=== PATIENT | female | born 1990 | race Caucasian/White ===

== ENCOUNTER 2018-04-02 20:47 | Emergency (ER) | payer SELFPAY ==
[~2018-04-02] VITALS: Ht 154.9 cm; Wt 73.5 kg
[~2018-04-02 20:47] MED LIST: ASCO-90 PO; IBUP-1222 PO; IRON1TAB60 PO; OMEG1CAP23 PO; OXYC-302 PO; PREN1TAB52 PO; SERT50TA PO
[2018-04-02] MEDS ORDERED: METOCLOPRAMIDE 5 MG/ML, 2ML ONE (22:58)
[2018-04-02] MEDS ORDERED: DIPHENHYDRAMINE 50 MG/ML, 1ML IVPush ONE (23:00)
[2018-04-02] MEDS ORDERED: METOCLOPRAMIDE 5 MG/ML, 2ML IVPush ONE (23:00)
[2018-04-02] MEDS ORDERED: SODIUM CHLORIDE 0.9% 1,000ML IVBOLUS ONE (23:00)
[2018-04-02 23:09] LABS: BASOPHILS # (AUTO) 0.03 x10^3/uL (0-0.1); BASOPHILS % (AUTO) 0 % (0-1); EOSINOPHILS # (AUTO) 0.02 x10^3/uL (0-0.4); EOSINOPHILS % (AUTO) 0 % (1-7); LYMPHOCYTES # (AUTO) 1.32 x10^3/uL (1-3.4); LYMPHOCYTES % (AUTO) 11 % (22-44); MD NO; MEAN CORPUSCULAR HEMOGLOBIN 30.4 pg (27.0-34.8); MEAN CORPUSCULAR HGB CONC 33.2 g/dL (32.4-35.8); MEAN CORPUSCULAR VOLUME 91.8 fL (80-100); MEAN PLATELET VOLUME 9.5 fL (7.4-10.4); MONOCYTES # (AUTO) 0.51 x10^3/uL (0.2-0.8); MONOCYTES % (AUTO) 4 % (2-9); NEUTROPHILS # (AUTO) 9.93 x10^3/uL (1.8-6.8); NEUTROPHILS % (AUTO) 84 % (42-75); PLATELET COUNT 239 x10^3/uL (130-400); RED BLOOD COUNT 4.73 x10^6/uL (3.82-5.3); RED CELL DISTRIBUTION WIDTH 13.3 % (9.6-15.2)
[2018-04-02] MEDS ORDERED: DIPHENHYDRAMINE 50 MG/ML, 1ML ONE (23:15)
[2018-04-02 23:19] LABS: ALBUMIN 3.3 g/dL (3.4-5.0); ANION GAP 12 mmol/L (5-15); CALCIUM 8.9 mg/dL (8.5-10.1); CHLORIDE 105 mmol/L (98-107)
[2018-04-02 23:24] LABS: ALANINE AMINOTRANSFERASE 33 U/L (12-78); ALKALINE PHOSPHATASE 50 U/L (45-117); BILIRUBIN,TOTAL 0.3 mg/dL (0.2-1.0); CREATININE 0.57 mg/dL (0.55-1.02); TOTAL PROTEIN 7.5 g/dL (6.4-8.2)
[2018-04-03 00:10] LABS: MICROSCOPIC AUTO
[2018-04-03 00:14] LABS: CULTURE INDICATED? YES
[2018-04-03 00:48] VITALS: BP 108/64
== END 2018-04-03 00:50 | disposition home or self-care (01) ==
LOC: ED 23:55
DX: O23.11 Infections of bladder in pregnancy, first trimester (principal); O21.9 Vomiting of pregnancy, unspecified; E86.9 Volume depletion, unspecified; Z3A.11 11 weeks gestation of pregnancy
CPT/HCPCS: 36415; 76801; 80053; 81001; 83690; 85025; 87086; 96361; 96374; 96375; 99284; J1200; J2765; J7030

== ENCOUNTER 2018-09-14 04:33 | Observation (INO) | payer SELFPAY ==
[~2018-09-14] VITALS: Ht 154.9 cm; Wt 84.1 kg
[2018-09-14 05:05] VITALS: BP 120/71
[2018-09-14 05:20] LABS: MICROSCOPIC INDICATED
[2018-09-14] MEDS ORDERED: PROMETHAZINE 25 MG/ML, 1ML IM PRN (05:30)
[2018-09-14] MEDS ORDERED: METOCLOPRAMIDE 5 MG/ML, 2ML IVPush PRN (05:30)
[2018-09-14] MEDS: D5%-LACTATED RINGERS 1,000 ML IV SCH ×2 (05:49→06:43)
[2018-09-14 06:11] LABS: BASOPHILS # (AUTO) 0.01 x10^3/uL (0-0.1); BASOPHILS % (AUTO) 0 % (0-1); EOSINOPHILS # (AUTO) 0.01 x10^3/uL (0-0.4); EOSINOPHILS % (AUTO) 0 % (1-7); LYMPHOCYTES % (AUTO) 14 % (22-44); MD NO; MEAN CORPUSCULAR HEMOGLOBIN 32.4 pg (27.0-34.8); MEAN CORPUSCULAR HGB CONC 33.6 g/dL (32.4-35.8); MEAN CORPUSCULAR VOLUME 96.2 fL (80-100); MEAN PLATELET VOLUME 10.6 fL (7.4-10.4); MONOCYTES # (AUTO) 0.47 x10^3/uL (0.2-0.8); MONOCYTES % (AUTO) 6 % (2-9); NEUTROPHILS # (AUTO) 6.41 x10^3/uL (1.8-6.8); NEUTROPHILS % (AUTO) 80 % (42-75); PLATELET COUNT 154 x10^3/uL (130-400); RED CELL DISTRIBUTION WIDTH 14.8 % (9.6-15.2)
[2018-09-14] MEDS ORDERED: PROGESTERONE VG (06:12)
[2018-09-14] MEDS ORDERED: OMEG1CAP23 PO (06:12)
[2018-09-14] MEDS ORDERED: ASPI-515 PO (06:12)
[2018-09-14] MEDS ORDERED: FERR324T5 PO (06:12)
[2018-09-14] MEDS ORDERED: ONDA4TAB7 PO (06:12)
[2018-09-14 06:15] LABS: ALANINE AMINOTRANSFERASE 17 U/L (12-78); ALBUMIN 2.3 g/dL (3.4-5.0); ANION GAP 9 mmol/L (5-15); CALCIUM 9.5 mg/dL (8.5-10.1); CHLORIDE 107 mmol/L (98-107); CREATININE 0.72 mg/dL (0.55-1.02)
[2018-09-14 06:17] LABS: ALKALINE PHOSPHATASE 186 U/L (45-117); BILIRUBIN,TOTAL 0.3 mg/dL (0.2-1.0); TOTAL PROTEIN 5.9 g/dL (6.4-8.2)
== END 2018-09-14 08:45 | disposition home or self-care (01) ==
LOC: LDOP 04:33 → INTOOBSV 05:45 → LDIP 05:45
PROVIDERS: ADMIT Obstetrics & Gynecology; ATTEND Obstetrics & Gynecology
DX: O21.2 Late vomiting of pregnancy (principal); O30.003 Twin pregnancy, unspecified number of placenta and unspecified number of amniotic sacs, third trimester; Z3A.34 34 weeks gestation of pregnancy
CPT/HCPCS: 36415; 80053; 81001; 82962; 85025; 87081; 87086; 96360; 96361; G0378; J7121; 59025

== ENCOUNTER 2018-09-23 05:07 | Inpatient (IN) | payer OTHER ==
[~2018-09-23] VITALS: Ht 154.9 cm; Wt 85.0 kg
[~2018-09-23 05:07] MED LIST changes: +ASPI-515 PO; +FERR324T5 PO; +ONDA4TAB7 PO; +PROGESTERONE VG
[2018-09-23 05:20] VITALS: BP 120/76
[2018-09-23] MEDS ORDERED: LACTATED RINGERS 1,000 ML IV SCH (05:52)
[2018-09-23] MEDS ORDERED: METOCLOPRAMIDE 5 MG/ML, 2ML IV ONE (06:00)
[2018-09-23] MEDS ORDERED: LACTATED RINGERS 1,000 ML IVBOLUS ONE (06:00)
[2018-09-23] MEDS ORDERED: SODIUM CITRATE/CITRIC ACID 15 ML UDC PO ONE (06:00)
[2018-09-23] MEDS ORDERED: OXYTOCIN 30U/ 0.9% NaCL 500ML 500 ML IV ONE (06:18)
[2018-09-23] MEDS ORDERED: FENTANYL/BUPIV./NS/PF 250 ML EPIDCONT SCH ×2 (06:23→08:22)
[2018-09-23] MEDS ORDERED: ONDANSETRON 2MG/ML, 2ML IVPush PRN ×2 (06:30→08:30)
[2018-09-23] MEDS ORDERED: FENTANYL PF 500 MCG, BUPIVACAINE/PF 0.5%, 30ML 62.5 ML in SODIUM CHLORIDE 0.9% 177.5 ML EPIDCONT SCH (06:30)
[2018-09-23] MEDS ORDERED: TERBUTALINE 1 MG/ML, 1ML IVPush PRN ×2 (06:30)
[2018-09-23] MEDS ORDERED: FENTANYL PF 100 MCG/2ML IV PRN (06:30)
[2018-09-23] MEDS ORDERED: FENTANYL PF 100 MCG/2ML IVPush PRN (06:30)
[2018-09-23 06:56] LABS: BASOPHILS # (AUTO) 0.03 x10^3/uL (0-0.1); BASOPHILS % (AUTO) 0 % (0-1); EOSINOPHILS % (AUTO) 0 % (1-7); LYMPHOCYTES % (AUTO) 16 % (22-44); MD NO; MEAN CORPUSCULAR HEMOGLOBIN 31.7 pg (27.0-34.8); MEAN CORPUSCULAR HGB CONC 31.8 g/dL (32.4-35.8); MEAN CORPUSCULAR VOLUME 99.8 fL (80-100); MEAN PLATELET VOLUME 10.4 fL (7.4-10.4); MONOCYTES % (AUTO) 7 % (2-9); NEUTROPHILS # (AUTO) 4.79 x10^3/uL (1.8-6.8); NEUTROPHILS % (AUTO) 77 % (42-75); PLATELET COUNT 161 x10^3/uL (130-400); RED BLOOD COUNT 4.27 x10^6/uL (3.82-5.3); RED CELL DISTRIBUTION WIDTH 14.5 % (9.6-15.2)
[2018-09-23] MEDS ORDERED: ONDANSETRON 2MG/ML, 2ML ONE ×2 (07:09→18:25)
[2018-09-23] MEDS ORDERED: FENTANYL PF 100 MCG/2ML ONE (07:29)
[2018-09-23] MEDS ORDERED: BUPIVACAINE 0.25% ONE ×2 (07:30→17:46)
[2018-09-23] MEDS ORDERED: METHYLERGONOVINE 0.2 MG/ML IM ONE (08:00)
[2018-09-23] MEDS ORDERED: EPHEDRINE 50 MG/ML, 1ML IVPush PRN (08:30)
[2018-09-23] MEDS ORDERED: LACTATED RINGERS 1,000 ML IVBOLUS PRN (08:30)
[2018-09-23] MEDS ORDERED: OXYTOCIN 30U/ 0.9% NaCL 500ML 500 ML IV PRN (08:35)
[2018-09-23] MEDS ORDERED: OXYTOCIN 30U/ 0.9% NaCL 500ML 500 ML ONE ×2 (08:36→15:17)
[2018-09-23] MEDS ORDERED: PROPOFOL 10 MG/ML, 20ML ONE (15:25)
[2018-09-23] MEDS ORDERED: MISOPROSTOL 200 MCG TABLET ONE (16:46)
[2018-09-23 17:40] LABS: MEAN CORPUSCULAR HEMOGLOBIN 31.9 pg (27.0-34.8); MEAN CORPUSCULAR HGB CONC 32.1 g/dL (32.4-35.8); MEAN CORPUSCULAR VOLUME 99.4 fL (80-100); PLATELET (DIC) 176 x10^3/uL (130-400); PLATELET COUNT 181 x10^3/uL (130-400); RED BLOOD COUNT 3.23 x10^6/uL (3.82-5.3); RED CELL DISTRIBUTION WIDTH 14.5 % (9.6-15.2)
[2018-09-23] MEDS ORDERED: MEPERIDINE/PF 50 MG/ML ONE (17:44)
[2018-09-23] MEDS ORDERED: PHENYLEPHRINE 10 MG/ML ONE (17:46)
[2018-09-23] MEDS ORDERED: CEFAZOLIN 1,000 MG ONE ×2 (17:46)
[2018-09-23] MEDS ORDERED: OXYTOCIN 30U/ 0.9% NaCL 500ML 500 ML IV SCH (17:54)
[2018-09-23] MEDS ORDERED: MEASLES,MUMPS&RUBELLA VACC/PF 0.5 ML SQ-VACC PRN (18:00)
[2018-09-23] MEDS ORDERED: OXYcodone/APAP 5/325MG TABLET PO PRN (18:00)
[2018-09-23] MEDS ORDERED: ACETAMINOPHEN 325 MG TABLET PO PRN ×2 (18:00)
[2018-09-23] MEDS ORDERED: MISOPROSTOL 200 MCG TABLET PR PRN (18:00)
[2018-09-23] MEDS ORDERED: MAGNESIUM HYDROXIDE 8%, 30ML UDC PO PRN (18:00)
[2018-09-23] MEDS ORDERED: RHOGAM FROM BLOOD BANK 1 NOTE EA IM/IV ONE (18:00)
[2018-09-23] MEDS ORDERED: CALCIUM CARBONATE 500 MG TAB.CHEW PO PRN (18:00)
[2018-09-23] MEDS ORDERED: DIPH,PERTUSS(ACELL),TET VAC/PF NC IM-VACC PRN (18:00)
[2018-09-23] MEDS ORDERED: ONDANSETRON 2MG/ML, 2ML IV PRN (18:00)
[2018-09-23 18:05] LABS: FIBRINOGEN 259 mg/dL (200-340); PROTIME 10.3 Seconds (9.6-11.5); PTT 28 Seconds (25-31)
[2018-09-23 18:10] LABS: MD YES
[2018-09-23 18:14] LABS: ANISOCYTOSIS 1+; BAND#(MANUAL) 2.14 x10^3/uL; BANDS%(MANUAL) 20 % (0-7); EOS#(MANUAL) 0.11 x10^3/uL (0.0-0.4); EOS% (MANUAL) 1 % (1-7); LYMPH#(MANUAL) 1.28 x10^3/uL (1-3.4); LYMPHS% (MANUAL) 12 % (22-44); METAMYELOCYTES# (MANUAL) 0.11 x10^3/uL (0-0); METAMYELOCYTES% (MANUAL) 1 % (0-1); MONOS#(MANUAL) 0.11 x10^3/uL (0.3-2.7); MONOS% (MANUAL) 1 % (2-9); POLYCHROMASIA 1+; SEG#(MANUAL) 6.96 x10^3/uL (1.8-6.8); SEGS% (MANUAL) 65 % (42-75)
[2018-09-23 18:16] LABS: <PLATELET ESTIMATE> ADEQUATE; <PLT MORPHOLOGY> NORMAL PLT MORPH
[2018-09-23 18:18] LABS: D-DIMER (DIC) > 35.20 ug/mlFEU (0.00-0.52)
[2018-09-23] MEDS: LACTATED RINGERS 1,000 ML IV SCH (18:37)
[2018-09-23] MEDS ORDERED: ACETAMINOPHEN 1,000 MG/100 ML IV IVPB STA (18:45)
[2018-09-23 23:45] LABS: BASOPHILS % (AUTO) 0 % (0-1); EOSINOPHILS % (AUTO) 0 % (1-7); LYMPHOCYTES # (AUTO) 0.92 x10^3/uL (1-3.4); LYMPHOCYTES % (AUTO) 6 % (22-44); MD NO; MEAN CORPUSCULAR HEMOGLOBIN 30.8 pg (27.0-34.8); MEAN CORPUSCULAR HGB CONC 31.7 g/dL (32.4-35.8); MEAN CORPUSCULAR VOLUME 97.1 fL (80-100); MEAN PLATELET VOLUME 9.7 fL (7.4-10.4); MONOCYTES # (AUTO) 0.64 x10^3/uL (0.2-0.8); MONOCYTES % (AUTO) 4 % (2-9); NEUTROPHILS # (AUTO) 15.03 x10^3/uL (1.8-6.8); NEUTROPHILS % (AUTO) 91 % (42-75); PLATELET COUNT 146 x10^3/uL (130-400); RED BLOOD COUNT 3.66 x10^6/uL (3.82-5.3); RED CELL DISTRIBUTION WIDTH 15.9 % (9.6-15.2)
[2018-09-23 23:46] LABS: D-DIMER (DIC) 20.67 ug/mlFEU (0.00-0.52); PROTIME 10.5 Seconds (9.6-11.5)
[2018-09-24] MEDS: LACTATED RINGERS 1,000 ML IV SCH ×2 (02:54→10:53)
[2018-09-24 08:35] LABS: MEAN CORPUSCULAR HEMOGLOBIN 30.6 pg (27.0-34.8); MEAN CORPUSCULAR HGB CONC 32.2 g/dL (32.4-35.8); MEAN CORPUSCULAR VOLUME 95.1 fL (80-100); MEAN PLATELET VOLUME 8.8 fL (7.4-10.4); PLATELET COUNT 158 x10^3/uL (130-400); RED BLOOD COUNT 3.32 x10^6/uL (3.82-5.3); RED CELL DISTRIBUTION WIDTH 16.3 % (9.6-15.2)
[2018-09-24 08:50] LABS: BASOPHILS % (AUTO) 0 % (0-1); EOSINOPHILS # (AUTO) 0.01 x10^3/uL (0-0.4); EOSINOPHILS % (AUTO) 0 % (1-7); LYMPHOCYTES # (AUTO) 1.04 x10^3/uL (1-3.4); LYMPHOCYTES % (AUTO) 7 % (22-44); MD SCAN; MONOCYTES # (AUTO) 0.86 x10^3/uL (0.2-0.8); MONOCYTES % (AUTO) 6 % (2-9); NEUTROPHILS # (AUTO) 13.18 x10^3/uL (1.8-6.8); NEUTROPHILS % (AUTO) 87 % (42-75)
[2018-09-24] MEDS ORDERED: FENTANYL/BUPIV./NS/PF 0 ML EPIDCONT ONE (09:39)
[2018-09-24] MEDS ORDERED: OXYcodone/APAP 5/325MG TABLET ONE (19:05)
[2018-09-24] MEDS: OXYcodone/APAP 5/325MG TABLET PO PRN ×2 (19:08→23:22)
[2018-09-24 20:35] VITALS: BP 102/67
[2018-09-24] MEDS ORDERED: SERTRALINE 50MG TABLET PO SCH (21:00)
[2018-09-24] MEDS: DOCUSATE 100 MG CAPSULE PO PRN (21:10)
[2018-09-24] MEDS: FERROUS SULFATE 325 MG TABLET PO SCH (21:10)
[2018-09-25] MEDS: IBUPROFEN 600 MG TABLET PO PRN ×4 (00:29→19:27)
[2018-09-25 00:30] VITALS: BP 101/70
[2018-09-25] MEDS: OXYcodone/APAP 5/325MG TABLET PO PRN ×6 (03:39→23:59)
[2018-09-25 03:43] VITALS: BP 109/72
[2018-09-25 07:15] VITALS: BP 91/56
[2018-09-25] MEDS: FERROUS SULFATE 325 MG TABLET PO SCH ×2 (07:47→17:26)
[2018-09-25] MEDS: DOCUSATE 100 MG CAPSULE PO PRN ×2 (07:47→19:27)
[2018-09-25 08:33] LABS: MEAN CORPUSCULAR HEMOGLOBIN 30.6 pg (27.0-34.8); MEAN CORPUSCULAR HGB CONC 31.7 g/dL (32.4-35.8); MEAN CORPUSCULAR VOLUME 96.8 fL (80-100); MEAN PLATELET VOLUME 9.1 fL (7.4-10.4); PLATELET COUNT 185 x10^3/uL (130-400); RED CELL DISTRIBUTION WIDTH 17.4 % (9.6-15.2)
[2018-09-25] MEDS: PRENATAL VIT/IRON/FA 1 EACH TABLET PO SCH ×2 (09:00→10:43)
[2018-09-25 09:28] LABS: BASOPHILS % (AUTO) 1 % (0-1); EOSINOPHILS % (AUTO) 0 % (1-7); LYMPHOCYTES % (AUTO) 17 % (22-44); MD SCAN; MONOCYTES % (AUTO) 7 % (2-9); NEUTROPHILS % (AUTO) 76 % (42-75)
[2018-09-25] MEDS: SERTRALINE 50MG TABLET PO SCH (10:43)
[2018-09-25 20:00] VITALS: BP 106/70
[2018-09-26] MEDS: IBUPROFEN 600 MG TABLET PO PRN ×2 (03:57→07:46)
[2018-09-26] MEDS: OXYcodone/APAP 5/325MG TABLET PO PRN ×3 (03:57→11:50)
[2018-09-26 07:19] VITALS: BP 122/82
[2018-09-26] MEDS: FERROUS SULFATE 325 MG TABLET PO SCH (07:44)
[2018-09-26] MEDS: DOCUSATE 100 MG CAPSULE PO PRN (07:44)
[2018-09-26] MEDS: PRENATAL VIT/IRON/FA 1 EACH TABLET PO SCH (07:44)
[2018-09-26] MEDS: SERTRALINE 50MG TABLET PO SCH (11:51)
[2018-09-26] MEDS ORDERED: HYDR-3240 PO (12:46)
[2018-09-26] MEDS ORDERED: IBUP200T49 PO (12:46)
== END 2018-09-26 14:33 | disposition home or self-care (01) | DRG 768 ==
LOC: LDOP 05:07 → LDIP 06:20 → 2NW 09-24 20:20
PROVIDERS: ADMIT Obstetrics & Gynecology; ATTEND Obstetrics & Gynecology
PROC: 10E0XZZ Delivery of Products of Conception, External Approach (ICD-10-PCS; principal; 2018-09-23)
PROC: 0W3R7ZZ Control Bleeding in Genitourinary Tract, Via Natural or Artificial Opening (ICD-10-PCS; 2018-09-23)
PROC: 0KQM0ZZ Repair Perineum Muscle, Open Approach (ICD-10-PCS; 2018-09-23)
PROC: 10H07YZ Insertion of Other Device into Products of Conception, Via Natural or Artificial Opening (ICD-10-PCS; 2018-09-23)
PROC: 3E0R3BZ Introduction of Anesthetic Agent into Spinal Canal, Percutaneous Approach (ICD-10-PCS; 2018-09-23)
PROC: 00HU33Z Insertion of Infusion Device into Spinal Canal, Percutaneous Approach (ICD-10-PCS; 2018-09-23)
PROC: 30233N1 Transfusion of Nonautologous Red Blood Cells into Peripheral Vein, Percutaneous Approach (ICD-10-PCS; 2018-09-23)
DX: O30.043 Twin pregnancy, dichorionic/diamniotic, third trimester (principal); Z37.2 Twins, both liveborn; O62.2 Other uterine inertia; Z3A.36 36 weeks gestation of pregnancy; O70.1 Second degree perineal laceration during delivery
CPT/HCPCS: 36415; S0020; 82803; 85025; 85049; 85379; 85384; 85610; 85730; 86850; 86900; 86923; 88307; G0378; J0131; J0690; J2175; J2405; J2704; J3010; J3490; J2210; J2370; J2590; J7050; J7120; P9016